=== PATIENT | female | born 1985 | race Caucasian/White ===

== ENCOUNTER 2016-12-26 19:32 | Emergency (ER) | payer SELFPAY ==
[~2016-12-26] VITALS: Ht 160 cm; Wt 50.1 kg
[2016-12-26 19:37] VITALS: BP 137/101
[2016-12-26 20:08] LABS: HEMATOCRIT 44.3 % (36.0-46.0); MCH 32.9 PG (29.0-34.0); MCHC 35.2 G/DL (30.0-36.0); MCV 93.5 FL (83-99); MEAN PLAT.VOLUME 9.5 uM^3 (9.5-12.4); PLATELET COUNT 310 K/uL (156-360); RBC DIS.WIDTH-CV 11.5 % (11.8-14.6); RBC DIS.WIDTH-SD 39.8 % (39-53); RED BLOOD COUNT 4.74 M/uL (3.80-5.20); WHITE BLOOD COUNT 7.7 K/uL (4.1-10.2)
[2016-12-26 20:14] LABS: ADD MIUA? YES; BILIRUBIN NEGATIVE; BLOOD NEGATIVE; COLOR YELLOW ((YELLOW)); GLUCOSE (STRIP) NEGATIVE; KETONES NEGATIVE; LEUKOCYTES NEGATIVE; NITRITE NEGATIVE; PROTEIN (STRIP) 30; SPECIFIC GRAVITY 1.016 (1.000-1.030); UROBILINOGEN 0.2 MG/DL (0.2-1.0)
[2016-12-26 20:19] LABS: CHLORIDE 99 mEq/L (99-109); POTASSIUM 3.6 mEq/L (3.7-5.4); SODIUM 138 mEq/L (136-147)
[2016-12-26 20:22] LABS: GLUCOSE 83 mg/dL (70-99)
[2016-12-26 20:23] LABS: ANION GAP 10 MEQ/L (2-14)
[2016-12-26 20:24] LABS: TOTAL BILIRUBIN 0.6 mg/dL (0.0-1.0)
[2016-12-26 20:25] LABS: ALKALINE PHOSPHATASE 58 IU/L (3-129)
[2016-12-26 20:26] LABS: UREA NITROGEN (BUN) 10 mg/dL (9-23)
[2016-12-26 20:34] LABS: GFR ESTIMATE (CALCULATED) > 59 mL/min/
[2016-12-26 20:38] LABS: QUANTITATIVE HCG < 4.0 MIU/ML
[2016-12-26 20:42] LABS: BACTERIA RARE /HPF; CALCIUM OXALATE CRYSTALS 1+ /HPF; EPITHELIAL CELLS 3+ /HPF; MUCUS 2+ /LPF; RED BLOOD CELLS 0-5 /HPF (0-5); UCUL ADDED? NO; UNCLASSIFIED CASTS 0-5 /LPF; WHITE BLOOD CELLS 0-5 /HPF (0-5)
== END 2016-12-26 19:34 | disposition left against medical advice (07) ==
LOC: EME 19:32
DX: R50.9 Fever, unspecified (principal); Z53.21 Procedure and treatment not carried out due to patient leaving prior to being seen by health care provider
CPT/HCPCS: 80053; 81003; 84702; 85027